=== PATIENT | male | born 1965 | race Two or more races ===

== ENCOUNTER 2021-08-30 09:06 | Day surgery (SDC) | payer OTHER, SELFPAY ==
[~2021-08-30] VITALS: Ht 162.6 cm; Wt 99.8 kg
[2021-08-30] MEDS ORDERED: LIDOCAINE 2% 100 MG/5 ML UJET TP ONE (11:51)
[2021-08-30] MEDS ORDERED: fentaNYL citrate 0.05 MG/ML VIAL ONE (11:51)
[2021-08-30] MEDS ORDERED: fentaNYL citrate 0.05 MG/ML VIAL IVP ONE (12:20)
== END 2021-08-30 12:54 | disposition home or self-care (01) ==
LOC: MDS 09:06 → MMU 09:07 → MDS 12:54
PROVIDERS: ATTEND Internal Medicine Gastroenterology
DX: Z12.11 Encounter for screening for malignant neoplasm of colon (principal); D12.3 Benign neoplasm of transverse colon; K64.9 Unspecified hemorrhoids; I10 Essential (primary) hypertension; E78.00 Pure hypercholesterolemia, unspecified; Z86.73 Personal history of transient ischemic attack (TIA), and cerebral infarction without residual deficits; Z79.84 Long term (current) use of oral hypoglycemic drugs; Z79.899 Other long term (current) drug therapy; Z20.822 Contact with and (suspected) exposure to COVID-19
CPT/HCPCS: 45385; 87426; J3010